=== PATIENT | female | born 1985 | race Two or more races ===

== ENCOUNTER 2025-08-30 15:09 | Emergency (ER) | payer OTHER ==
[~2025-08-30] VITALS: Ht 165.1 cm; Wt 72.6 kg
[2025-08-30] MEDS ORDERED: ZESTRIL5 MG (15:24)
[2025-08-30 15:27] VITALS: BP 124/84; O2SAT 99
[2025-08-30] MEDS ORDERED: CEFTRIAXONE SODIUM 1,000 MG VIAL IM ONE (16:00)
[2025-08-30] MEDS ORDERED: KETOROLAC TROMETHAMINE 60 MG VIAL IM ONE (16:00)
[2025-08-30] MEDS ORDERED: CEFTRIAXONE SODIUM 1,000 MG VIAL ONE (16:08)
[2025-08-30] MEDS ORDERED: KETOROLAC TROMETHAMINE 30 MG VIAL ONE ×2 (16:08→16:09)
[2025-08-30 16:38] LABS: BASO % 0.7 % (0.1-1.2); EOS # 0.14 (0.04-0.54); EOS % 1.7 % (0.7-7.0); LYMPH # 2.04 (1.18-3.74); LYMPH % 24.4 % (19.3-53.1); MEAN PLATELET VOLUME 9.50 fl (9.4-12.4); MONO # 0.63 (0.24-0.82); MONO % 7.5 % (4.7-12.5); NEUT # 5.46 (1.56-6.13); NEUT % 65.3 % (34.0-71.1); RED CELL DISTRIBUTION WIDTH 12.5 % (11.6-14.4)
[2025-08-30 16:49] LABS: ERYTHROCYTE SEDIMENTATION RATE < 1 mm/hr (0-20)
[2025-08-30 17:27] LABS: ALT/SGPT 56 U/L (12-78); AST/SGOT 36 U/L (15-37); BILIRUBIN TOTAL 0.62 mg/dL (0.3-1.2); BUN CREA RATIO 19 (7.0-25.0); CREATININE SERUM 0.74 mg/dL (0.55-1.02); GFR 87.83; GLOBULINA 3.3 G/DL (2.4-3.5); GLUCOSE FASTING 108 mg/dL (65-100); OSMOLALITY SERUM 279 MOSM/KG (275-295)
[2025-08-30] MEDS ORDERED: MUPIROCIN1 G1 TOP (19:11)
[2025-08-30] MEDS ORDERED: INTESTINEX680 M1 PO (19:24)
[2025-08-30] MEDS ORDERED: DEXAMETHASONE4 MG PO (19:24)
[2025-08-30] MEDS ORDERED: CEPHALEXIN500 MG PO (19:24)
[2025-08-30] MEDS ORDERED: KETO10TA2 PO (19:24)
[2025-08-30] MEDS ORDERED: PEPCID AC20 MG PO (19:24)
== END 2025-08-30 21:31 | disposition home or self-care (01) ==
LOC: ER 15:09
PROVIDERS: General Practice
DX: T25.322A Burn of third degree of left foot, initial encounter (principal); X08.8XXA Exposure to other specified smoke, fire and flames, initial encounter; Y93.89 Activity, other specified; Y92.89 Other specified places as the place of occurrence of the external cause; M79.672 Pain in left foot